=== PATIENT | female | born 1970 | race African-American/Black ===

== ENCOUNTER 2018-05-19 14:42 | Emergency (ER) | payer SELFPAY ==
[~2018-05-19] VITALS: Ht 149.9 cm; Wt 68.0 kg
[2018-05-19 15:09] VITALS: BP 118/72
[2018-05-19 15:57] LABS: CLARITY URINE CLEAR (CLEAR); COLOR URINE DARK YELLOW (YELLOW); KETONES URINE NEGATIVE (NEGATIVE); LEUKOCYTE ESTERASE URINE NEGATIVE (NEGATIVE); NITRITE URINE NEGATIVE (NEGATIVE); OCCULT BLOOD URINE NEGATIVE (NEGATIVE); PROTEIN URINE 1+ (NEGATIVE); SPECIFIC GRAVITY URINE 1.032 (1.005-1.030)
[2018-05-19 16:23] LABS: *BARBITURATES SCREEN URINE NEGATIVE (NEGATIVE); *BENZODIAZEPINES SCREEN URINE NEGATIVE (NEGATIVE); *COCAINE SCREEN URINE NEGATIVE (NEGATIVE); METHADONE URINE SCREEN NEGATIVE (NEGATIVE); OPIATES URINE SCREEN NEGATIVE (NEGATIVE)
[2018-05-19 16:24] LABS: PHENCYCLIDINE URINE SCREEN NEGATIVE (NEGATIVE)
[2018-05-19 16:25] LABS: *AMPHETAMINES SCREEN URINE PRESUMTIVE POSITIVE (NEGATIVE); CANNABINOID URINE SCREEN PRESUMTIVE POSITIVE (NEGATIVE)
[2018-05-19 17:36] LABS: BASOPHILS % 0.1 % (0.0-2.0); EOSINOPHILS % 0.1 % (0.0-5.0); HEMOGLOBIN. 9.6 g/dL (12.0-16.0); LYMPHOCYTES % 7.2 % (20.0-50.0); MEAN CORPUSCULAR HEMOGLOBIN 19.7 pg (28.0-32.0); MEAN CORPUSCULAR VOLUME 65.9 fL (81.0-99.0); MONOCYTES % 8.9 % (2.0-8.0); NEUTROPHILS % 83.7 % (40.0-76.0); PLATELET 391 x1000/uL (130-400); RED BLOOD CELL COUNT 4.86 mill/uL (4.2-5.4); RED CELL DISTRIBUTION WIDTH 20.3 % (11.6-14.6)
[2018-05-19 17:37] LABS: CHLORIDE 100 mEq/L (98-107)
[2018-05-19 19:48] LABS: PLATELET ESTIMATE NORMAL
== END 2018-05-19 22:11 | disposition left against medical advice (07) ==
LOC: ER 14:42
DX: R10.11 Right upper quadrant pain (principal); R06.02 Shortness of breath; F12.10 Cannabis abuse, uncomplicated; F17.200 Nicotine dependence, unspecified, uncomplicated
CPT/HCPCS: 36415; 80053; 80305; 81003; 83690; 85025; 99284

== ENCOUNTER 2018-06-03 16:45 | Inpatient (IN) | payer SELFPAY ==
[~2018-06-03] VITALS: Ht 152.4 cm; Wt 74.8 kg
[2018-06-03] VITALS (9 sets, daily range): BP systolic 45–64; BP diastolic 26–48
[~2018-06-03 16:45] MED LIST: ETOMIDATE 2MG/ML 10ML VIAL IV ONE; NORMAL SALINE 0.9% 10 ML SYR ONE; VECURONIUM BROMIDE 10 MG/VIAL IV ONE
[2018-06-03] MEDS ORDERED: ADENOSINE 3 MG/ML 2ML VIAL IV ONE ×3 (17:30→17:45)
[2018-06-03] MEDS: ADENOSINE 3 MG/ML 2ML VIAL IV ONE ×2 (17:57→18:21)
[2018-06-03] MEDS ORDERED: ENOXAPARIN 80MG/0.8ML SYR SUBCUT ONE (18:15)
[2018-06-03 18:41] LABS: CHLORIDE 108 mEq/L (98-107)
[2018-06-03 18:43] LABS: INR 1.3; PROTHROMBIN TIME 12.7 sec (9.1-11.1)
[2018-06-03 18:45] LABS: BASOPHILS % 0.8 % (0.0-2.0); EOSINOPHILS % 1.3 % (0.0-5.0); HCG SCREEN NEGATIVE; HEMATOCRIT. 23.7 % (36.0-48.0); LYMPHOCYTES % 22.9 % (20.0-50.0); MEAN CORPUSCULAR VOLUME 75.3 fL (81.0-99.0); MEAN PLATELET VOLUME 8.4 fl (7.4-10.4); MONOCYTES % 8.7 % (2.0-8.0); NEUTROPHILS % 66.3 % (40.0-76.0); PLATELET 355 x1000/uL (130-400); RED BLOOD CELL COUNT 3.15 mill/uL (4.2-5.4); RED CELL DISTRIBUTION WIDTH 20.5 % (11.6-14.6)
[2018-06-03 18:46] LABS: HEMOGLOBIN. 6.3 g/dL (12.0-16.0)
[2018-06-03] MEDS ORDERED: SODIUM CHLORIDE 0.9% 1,000 ML IV ONE ×3 (19:34→20:39)
[2018-06-03] MEDS ORDERED: MORPHINE SULFATE 4 MG/ML CPJ (NOT FOR IM USE) IV ONE ×3 (19:45→21:45)
[2018-06-03] MEDS ORDERED: IOHEXOL-350 100 ML BOTTLE ONE ×2 (19:52→20:37)
[2018-06-03 20:11] LABS: BG BASE EXCESS -23.1 mmol/L (-2.0-2.0); BG CARBOXYHEMOGLOBIN 0.8 % (0.5-1.5); BG DEOXYHEMOGLOBIN 1.8 % (0.0-5.0); BG FRACTION INSPIRED OXYGEN 40; BG HCO3 ACT 5.6 mmol/L (22.0-26.0); BG METHEMOGLOBIN 0.3 % (0.0-1.5); BG OXYGEN SATURATION 98.2 % (92.0-98.5); BG OXYHEMOGLOBIN 97.1 % (94.0-97.0); BG PCO2 22.5 mmHg (35.0-45.0); BG PH 7.015 (7.350-7.450); BG SAMPLE SITE RIGHT RADIAL; BG TOTAL HEMOGLOBIN 4.7 g/dL (12.0-18.0); BG VENT MODE NASAL CANNULA
[2018-06-03] MEDS ORDERED: SODIUM BICARBONATE 8.4% 1 MEQ/ML 50ML SYR IV ONE (20:30)
[2018-06-03] MEDS ORDERED: SODIUM BICARBONATE 150 MEQ in DEXTROSE 5% WATER 1,000 ML IV SCH (20:30)
[2018-06-03] MEDS ORDERED: SODIUM CHLORIDE 0.9% 1,000 ML IV SCH (22:21)
[2018-06-03] MEDS ORDERED: DOCUSATE SODIUM 100MG CAPSULE PO PRN (22:30)
[2018-06-03] MEDS ORDERED: ACETAMINOPHEN 325MG TABLET PO PRN (22:30)
[2018-06-03] MEDS ORDERED: MAGNESIUM/ALUMINUM HYDROXIDE/SIMETHICONE 30ML UDC PO PRN (22:30)
[2018-06-03] MEDS ORDERED: HYDROCODONE/ACETAMINOPHEN 5/325MG TABLET PO PRN (22:30)
[2018-06-03] MEDS ORDERED: ONDANSETRON HCL 4MG/2ML VIAL IV PRN (22:30)
[2018-06-03] MEDS ORDERED: IPRATROPIUM/ALBUTEROL 0.5-3(2.5)MG/3ML NEB INH PRN (22:30)
[2018-06-03] MEDS ORDERED: CLONIDINE 0.1MG TABLET PO PRN (22:30)
[2018-06-04] VITALS (26 sets, daily range): BP systolic 34–160; BP diastolic 16–117
[2018-06-04] MEDS ORDERED: NOREPINEPHRINE 16 MG in DEXT 5% WATER 250 ML IV PRN ×2
[2018-06-04] MEDS ORDERED: HEPARIN 80 UNITS/KG BOLUS IV SCH (01:00)
[2018-06-04] MEDS ORDERED: HEPARIN 25,000 UNITS PREMIX 500 ML IV SCH (01:00)
[2018-06-04 01:23] LABS: BG BASE EXCESS -23.2 mmol/L (-2.0-2.0); BG CARBOXYHEMOGLOBIN 0.6 % (0.5-1.5); BG DEOXYHEMOGLOBIN 0.3 % (0.0-5.0); BG FRACTION INSPIRED OXYGEN 100; BG HCO3 ACT 7.1 mmol/L (22.0-26.0); BG METHEMOGLOBIN 0.6 % (0.0-1.5); BG OXYGEN SATURATION 99.7 % (92.0-98.5); BG OXYHEMOGLOBIN 98.5 % (94.0-97.0); BG PCO2 34.1 mmHg (35.0-45.0); BG PH 6.934 (7.350-7.450); BG PO2 531.9 mmHg (75.0-100.0); BG SAMPLE SITE RIGHT RADIAL; BG TIDAL VOLUME(mL) 400 mL; BG TOTAL HEMOGLOBIN 6.1 g/dL (12.0-18.0); BG VENT MODE VENT - A/C; BG VENT RATE 16 set
[2018-06-04] MEDS ORDERED: SODIUM BICARBONATE 8.4% 1 MEQ/ML 50ML SYR IV SCH ×2 (02:35→08:15)
[2018-06-04 03:57] LABS: BASOPHILS % 0.7 % (0.0-2.0); EOSINOPHILS % 0.1 % (0.0-5.0); LYMPHOCYTES % 9.9 % (20.0-50.0); MEAN CORPUSCULAR HEMOGLOBIN 23.3 pg (28.0-32.0); MEAN CORPUSCULAR VOLUME 80.8 fL (81.0-99.0); MONOCYTES % 7.8 % (2.0-8.0); NEUTROPHILS % 81.5 % (40.0-76.0); PLATELET 197 x1000/uL (130-400); RED BLOOD CELL COUNT 2.55 mill/uL (4.2-5.4); RED CELL DISTRIBUTION WIDTH 23.8 % (11.6-14.6)
[2018-06-04 04:06] LABS: HEMATOCRIT. 20.6 % (36.0-48.0)
[2018-06-04] MEDS ORDERED: NOREPINEPHRINE 16 MG in DEXT 5% WATER 234 ML IV PRN (05:00)
[2018-06-04] MEDS: PHENYLEPHRINE 40 MG in DEXT 5% WATER 246 ML IV PRN ×3 (05:01→13:11)
[2018-06-04] MEDS ORDERED: HEPARIN BOLUS PRN aPTT 37-44 IV (06:00)
[2018-06-04] MEDS ORDERED: HEPARIN BOLUS PRN aPTT <36 IV (06:00)
[2018-06-04 08:23] LABS: BG BASE EXCESS -28.4 mmol/L (-2.0-2.0); BG CARBOXYHEMOGLOBIN 0.6 % (0.5-1.5); BG DEOXYHEMOGLOBIN 1.2 % (0.0-5.0); BG FRACTION INSPIRED OXYGEN 50; BG HCO3 ACT 3.3 mmol/L (22.0-26.0); BG METHEMOGLOBIN 0.7 % (0.0-1.5); BG OXYGEN SATURATION 98.8 % (92.0-98.5); BG OXYHEMOGLOBIN 97.5 % (94.0-97.0); BG PCO2 20.6 mmHg (35.0-45.0); BG PH 6.824 (7.350-7.450); BG PO2 215.9 mmHg (75.0-100.0); BG SAMPLE SITE RIGHT RADIAL; BG TIDAL VOLUME(mL) 400 mL; BG TOTAL HEMOGLOBIN 6.5 g/dL (12.0-18.0); BG VENT MODE VENT - A/C; BG VENT RATE 16 set
[2018-06-04] MEDS: VASOPRESSIN 10 UNIT in SODIUM CHLORIDE 0.9% 99.5 ML IV PRN ×2 (08:29→12:08)
[2018-06-04] MEDS ORDERED: SODIUM BICARBONATE 150 MEQ in DEXTROSE 5% WATER 850 ML IV SCH (09:00)
[2018-06-04] MEDS ORDERED: PANTOPRAZOLE SODIUM 40 MG/VIAL IV SCH ×2 (09:00→21:00)
[2018-06-04 09:33] LABS: MEAN CORPUSCULAR HEMOGLOBIN 25.8 pg (28.0-32.0); MEAN CORPUSCULAR VOLUME 87.1 fL (81.0-99.0); RED CELL DISTRIBUTION WIDTH 22.9 % (11.6-14.6)
[2018-06-04 09:45] LABS: HEMATOCRIT. 18.3 % (36.0-48.0); HEMOGLOBIN. 5.4 g/dL (12.0-16.0)
[2018-06-04 09:55] LABS: CHLORIDE 103 mEq/L (98-107)
[2018-06-04] MEDS ORDERED: VASOPRESSIN 10 UNIT in SODIUM CHLORIDE 0.9% 99.5 ML IV PRN (10:00)
[2018-06-04 10:02] LABS: LDL CHOLESTEROL 27 mg/dL (5-100)
[2018-06-04 10:04] LABS: HDL CHOLESTEROL 11 mg/dL (40-59)
[2018-06-04 10:07] LABS: CREATINE KINASE MB FRACTION 85.4 ng/mL (0.5-3.6)
[2018-06-04 10:10] LABS: BG BASE EXCESS -20.7 mmol/L (-2.0-2.0); BG DEOXYHEMOGLOBIN 0.5 % (0.0-5.0); BG FRACTION INSPIRED OXYGEN 100; BG HCO3 ACT 6.1 mmol/L (22.0-26.0); BG METHEMOGLOBIN 0.7 % (0.0-1.5); BG OXYGEN SATURATION 99.5 % (92.0-98.5); BG OXYHEMOGLOBIN 97.8 % (94.0-97.0); BG PCO2 17.5 mmHg (35.0-45.0); BG SAMPLE SITE RIGHT BRACHIAL; BG TIDAL VOLUME(mL) 500 mL; BG TOTAL HEMOGLOBIN 5.5 g/dL (12.0-18.0); BG VENT MODE VENT - A/C; BG VENT RATE 30 set
[2018-06-04] MEDS ORDERED: DEXTROSE 50% WATER 50ML SYRINGE IV PRN ×2 (10:45→11:30)
[2018-06-04 11:05] LABS: CREATINE KINASE 4841 IU/L (26-192)
[2018-06-04] MEDS ORDERED: BLOOD SUGAR DIAGNOSTIC STRIP TEST SCH (11:30)
[2018-06-04] MEDS ORDERED: PIPERACILLIN/TAZ 3.375G PREMIX 50 ML IV SCH (11:30)
[2018-06-04] MEDS: INSULIN LISPRO 100 UNITS/ML SUBCUT SCH ×2 (11:30→15:30)
[2018-06-04] MEDS: BLOOD SUGAR DIAGNOSTIC STRIP TEST SCH ×2 (11:36→15:57)
[2018-06-04] MEDS ORDERED: VANCOMYCIN 1500MG in DEXTROSE 5% WATER 250ML IV SCH (12:00)
[2018-06-04] MEDS ORDERED: INSULIN LISPRO 100 UNITS/ML SUBCUT SCH (12:00)
[2018-06-04] MEDS ORDERED: PHENYLEPHRINE 40 MG in DEXT 5% WATER 246 ML IV PRN (12:15)
[2018-06-04] MEDS ORDERED: NOREPINEPHRINE 32 MG in DEXT 5% WATER 468 ML IV PRN (12:30)
[2018-06-04 12:39] LABS: PLATELET 152 x1000/uL (130-400)
[2018-06-04 12:43] LABS: NUCLEATED RED BLOOD CELLS 5 /100 WBC; PLATELET ESTIMATE NORMAL
[2018-06-04 13:33] LABS: PROTHROMBIN TIME > 100.0 sec (9.1-11.1)
[2018-06-04 13:35] LABS: INR > 10.0
[2018-06-04] MEDS ORDERED: EPINEPHRINE 0.1MG/ML (1:10,000) 10ML SYR ONE ×2 (14:56→16:35)
[2018-06-04] MEDS ORDERED: MAGNESIUM SULFATE 4G IN WATER 100ML PREMIX IV ONE (14:56)
[2018-06-04] MEDS ORDERED: CALCIUM CHLORIDE 1GM/10ML SYR IV ONE (14:56)
[2018-06-04] MEDS ORDERED: SODIUM BICARBONATE 7.5% 0.9 MEQ/ML 50ML SYR IV ONE (14:56)
[2018-06-04 14:59] LABS: HEMATOCRIT 18.7 % (36.0-48.0); HEMOGLOBIN 4.8 g/dL (12.0-16.0)
[2018-06-04 15:06] LABS: CREATINE KINASE MB FRACTION 179.1 ng/mL (0.5-3.6)
[2018-06-04 15:30] LABS: PROTHROMBIN TIME > 100.0 sec (9.1-11.1)
[2018-06-04 15:34] LABS: INR > 10.0; PARTIAL THROMBOPLASTIN TIME > 200.0 sec (23.4-31.0)
[2018-06-04 15:35] LABS: FIBRINOGEN < 50 mg/dL (200-400)
[2018-06-04] MEDS ORDERED: PHYTONADIONE 10MG/ML AMP SUBCUT NR (16:00)
[2018-06-04] MEDS ORDERED: EPINEPHRINE 1 MG in SODIUM CHLORIDE 0.9% 249 ML IV PRN (16:45)
[2018-06-04] MEDS ORDERED: SODIUM BICARBONATE 8.4% 1 MEQ/ML 50ML SYR IV ONE (16:47)
[2018-06-04] MEDS ORDERED: EPINEPHRINE 1 MG in DEXT 5% WATER 250 ML IV PRN (17:00)
[2018-06-04 17:36] LABS: VITAMIN B12 SERUM 1000 pg/mL (211-911)
[2018-06-04 17:41] LABS: FOLIC ACID (FOLATE) SERUM > 20.00 ng/mL (>5.38)
[2018-06-04 17:42] LABS: FERRITIN 2625 ng/mL (10-291)
[2018-06-04 18:23] LABS: HEPATITIS B SURFACE ANTIGEN NEGATIVE
[2018-06-04 18:51] LABS: HEPATITIS B CORE AB IGM NEGATIVE
[2018-06-04 18:53] LABS: HEPATITIS A AB IGM NEGATIVE (NEGATIVE)
[2018-06-04] MEDS ORDERED: VANCOMYCIN 750 MG PREMIX 150 ML IV SCH (23:00)
[2018-06-05] MEDS ORDERED: VANCOMYCIN 750 MG PREMIX 150 ML IV SCH (12:00)
== END 2018-06-04 16:50 | disposition expired | DRG 720 ==
LOC: ER 17:26 → EDBEDREQ 19:34 → EDBEDREQSVC 19:34 → MICUSO 20:32 → EDBEDREQ 20:36 → EDBEDREQTM 20:36 → ENRESERV 21:24 → MICUSO 22:45
PROVIDERS: ADMIT Internal Medicine; ATTEND Internal Medicine
PROC: 30233N1 Transfusion of Nonautologous Red Blood Cells into Peripheral Vein, Percutaneous Approach (ICD-10-PCS; 2018-06-03)
PROC: 02HV33Z Insertion of Infusion Device into Superior Vena Cava, Percutaneous Approach (ICD-10-PCS; principal; 2018-06-04)
PROC: B548ZZA Ultrasonography of Superior Vena Cava, Guidance (ICD-10-PCS; 2018-06-04)
DX: A41.9 Sepsis, unspecified organism (principal); I26.99 Other pulmonary embolism without acute cor pulmonale; J96.00 Acute respiratory failure, unspecified whether with hypoxia or hypercapnia; J69.0 Pneumonitis due to inhalation of food and vomit; R65.21 Severe sepsis with septic shock; G93.41 Metabolic encephalopathy; G93.1 Anoxic brain damage, not elsewhere classified; K92.2 Gastrointestinal hemorrhage, unspecified; E43 Unspecified severe protein-calorie malnutrition; D68.59 Other primary thrombophilia; D50.9 Iron deficiency anemia, unspecified; F10.10 Alcohol abuse, uncomplicated; I47.2 Ventricular tachycardia; D25.9 Leiomyoma of uterus, unspecified; F15.90 Other stimulant use, unspecified, uncomplicated; F17.210 Nicotine dependence, cigarettes, uncomplicated; I51.7 Cardiomegaly; I82.432 Acute embolism and thrombosis of left popliteal vein; I82.412 Acute embolism and thrombosis of left femoral vein; J98.11 Atelectasis; K76.0 Fatty (change of) liver, not elsewhere classified; M62.82 Rhabdomyolysis; Z68.32 Body mass index [BMI] 32.0-32.9, adult
CPT/HCPCS: 31500; 36415; 36569; 36600; 71045; 71275; 73502; 73552; 76937; 80053; 80061; 82375; 82550; 82553; 82607; 82728; 82746; 82805; 82962; 83540; 83550; 83605; 83735; 83880; 84443; 84484; 84703; 85014; 85018; 85025; 85044; 85384; 85610; 85611; 85730; 85732; 86140; 86705; 86709; 86803; 86850; 86900; 86920; 87040; 87340; 93005; 93306; 93971; 94002; 94003; 96361; 96365; 96375; 96376; 99291; A4216; C1725; C9113; J0153; J1650; J2270; J2370; J2543; J3370; J3430; J3475; J3490; J7030; J7050; J7060; J7070; P9016; Q9967; A4315